=== PATIENT | male | born 1940 | race Caucasian/White ===

== ENCOUNTER 2025-01-08 14:56 | Inpatient (IN) | payer MEDICARE, MEDICAID ==
[~2025-01-08] VITALS: Ht 177.8 cm; Wt 76.9 kg
[2025-01-08 15:33] LABS: PLATELET COUNT (AUTO) 123 K/uL (150-450); RED BLOOD CELL COUNT(AUTO) 4.46 MIL/uL (4.5-6.0); RED CELL DISTRIBUTION WIDTH 15.1 % (11.5-15.0); WHITE BLOOD COUNT (AUTO) 5.5 K/uL (4.3-11.0)
[2025-01-08 15:37] LABS: CALCIUM, SERUM 8.5 mg/dL (8.5-10.1); CREATININE 1.4 mg/dL (0.6-1.3); SODIUM SERUM 138 mmol/L (136-145); UREA NITROGEN, BLOOD 25 mg/dL (7-18)
[2025-01-08 15:42] LABS: ASPARTATE AMINOTRANSFERASE 15 U/L (15-37); TOTAL PROTEIN, SERUM 6.6 g/dL (6.4-8.2)
[2025-01-08 15:54] LABS: ALCOHOL, BLOOD < 3 mg/dL (0-10)
[2025-01-08] MEDS ORDERED: POLY17PO4 PO (15:57)
[2025-01-08] MEDS ORDERED: SENN8.6T19 PO (15:57)
[2025-01-08] MEDS ORDERED: ACET-868 PO (15:57)
[2025-01-08] MEDS ORDERED: LORA-258 PO (15:57)
[2025-01-08] MEDS ORDERED: BUSP7.5T7 PO (15:57)
[2025-01-08] MEDS ORDERED: LORA2VIA33 IM (15:57)
[2025-01-08] MEDS ORDERED: AMLO5TAB4 PO (15:57)
[2025-01-08] MEDS ORDERED: CYAN-51 PO (15:57)
[2025-01-08] MEDS ORDERED: APIX5TAB PO (15:57)
[2025-01-08] MEDS ORDERED: DONE5TAB34 PO (15:57)
[2025-01-08] MEDS ORDERED: CYCL30DR EACHEYE (15:57)
[2025-01-08] MEDS ORDERED: MIRT7.5T10 PO (15:57)
[2025-01-08] MEDS ORDERED: ISOS30TA86 PO (15:57)
[2025-01-08] MEDS ORDERED: CHOL200026 PO (15:57)
[2025-01-08] MEDS ORDERED: DIVA-78 PO ×2 (15:57)
[2025-01-08] MEDS ORDERED: FINA5TAB4 PO (15:57)
[2025-01-08] MEDS ORDERED: ATOR40TA PO (15:57)
[2025-01-08] MEDS ORDERED: INSU100V28 SQ (15:57)
[2025-01-08] MEDS ORDERED: TAMS-12 PO (15:57)
[2025-01-08] MEDS ORDERED: LEVE500T20 PO (15:57)
[2025-01-08 16:05] LABS: APPEARANCE,URINE CLEAR (CLEAR); BLOOD, URINE Negative Ery/uL (NEGATIVE); LEUKOCYTE ESTERASE ,URINE Negative (NEGATIVE); NITRITE, URINE NEGATIVE (NEGATIVE); UGLUCOSE 250 MG/DL mg/dL (NEGATIVE)
[2025-01-08 16:06] LABS: ADD URINE CULTURE NO; SQUAMOUS EPITHELIAL CELL,UR None Seen /HPF (None Seen)
[2025-01-08 16:12] LABS: AMPHETAMINE, URINE NEGATIVE (NEGATIVE); BARBITURATE, URINE NEGATIVE (NEGATIVE); BENZODIAZEPINE, URINE NEGATIVE (NEGATIVE); CANNABINOID, URINE NEGATIVE (NEGATIVE); COCCAINE, URINE NEGATIVE (NEGATIVE); OPIATE, URINE NEGATIVE (NEGATIVE)
[2025-01-08] MEDS ORDERED: LORAZEPAM 0.5 MG TABLET PO PRN (17:30)
[2025-01-08] MEDS ORDERED: POLYETHYLENE GLYCOL 3350 17 GM POWD.PACK PO PRN (17:30)
[2025-01-08] MEDS ORDERED: MAGNESIUM HYDROXIDE 30 ML UDC PO PRN (17:30)
[2025-01-08] MEDS ORDERED: ACETAMINOPHEN 325 MG TABLET PO PRN ×2 (17:30)
[2025-01-08] MEDS ORDERED: IV NS 0.9% 1,000 ML IV SCH (17:30)
[2025-01-08] MEDS ORDERED: ONDANSETRON HCL/PF 4 MG/2 ML VIAL IVP PRN (17:30)
[2025-01-08] MEDS ORDERED: MAG HYDROX/AL HYDROX/SIMETH 30 ML UDC PO PRN (17:30)
[2025-01-08] MEDS ORDERED: Z GUARD REMEDY 4 OZ OINT TP PRN (17:30)
[2025-01-08 20:00] VITALS: BP 146/78; TEMP 97.5; O2SAT 99
[2025-01-08] MEDS: DIVALPROEX SODIUM 500 MG TABLET.DR PO SCH (21:53)
[2025-01-08] MEDS: DONEPEZIL 5 MG TABLET PO SCH (21:53)
[2025-01-08] MEDS: TAMSULOSIN 0.4 MG CAP.SR.24H PO SCH (21:53)
[2025-01-08] MEDS: MIRTAZAPINE 15 MG TABLET PO SCH (21:53)
[2025-01-08] MEDS: SENNOSIDES 8.6 MG TABLET PO SCH (21:53)
[2025-01-08] MEDS: AMLODIPINE BESYLATE 5 MG TABLET PO SCH (22:13)
[2025-01-08] MEDS: IV NS 0.9% 1,000 ML IV PRN (22:59)
[2025-01-09 07:17] LABS: PLATELET COUNT (AUTO) 114 K/uL (150-450); RED BLOOD CELL COUNT(AUTO) 4.28 MIL/uL (4.5-6.0); RED CELL DISTRIBUTION WIDTH 14.7 % (11.5-15.0); WHITE BLOOD COUNT (AUTO) 4.0 K/uL (4.3-11.0)
[2025-01-09 08:00] VITALS: BP 134/69; TEMP 98.2; O2SAT 99
[2025-01-09 08:02] LABS: CALCIUM, SERUM 8.3 mg/dL (8.5-10.1); CREATININE 1.2 mg/dL (0.6-1.3); PHOSPHORUS 2.7 mg/dL (2.5-4.9); SODIUM SERUM 143.0 mmol/L (136-145); UREA NITROGEN, BLOOD 19.0 mg/dL (7-18)
[2025-01-09 08:58] VITALS: BP 134/69; TEMP 98.2; O2SAT 99
[2025-01-09] MEDS: APIXABAN 5 MG TABLET PO SCH (09:00)
[2025-01-09] MEDS: DIVALPROEX SODIUM 500 MG TABLET.DR PO SCH (09:00)
[2025-01-09] MEDS: ISOSORBIDE MONONITRATE (30MG) 30 MG TAB.SR.24H PO SCH (10:11)
[2025-01-09] MEDS: LEVETIRACETAM (250 MG) 250 MG TABLET PO SCH (10:12)
[2025-01-09] MEDS: FINASTERIDE (5 MG) 5 MG TABLET PO SCH (10:12)
[2025-01-09] MEDS: LORAZEPAM INJ 2 MG/ML VIAL IM PRN (12:55)
[2025-01-09 16:00] VITALS: BP 149/91; TEMP 98.2; O2SAT 96
[2025-01-09 17:07] VITALS: BP 149/91; TEMP 98.2; O2SAT 96
[2025-01-09 20:00] VITALS: BP 120/79; TEMP 98.2; O2SAT 97
[2025-01-10 07:00] VITALS: BP 118/70; TEMP 97.2; O2SAT 100
[2025-01-10 07:02] LABS: PLATELET COUNT (AUTO) 117 K/uL (150-450); RED BLOOD CELL COUNT(AUTO) 4.40 MIL/uL (4.5-6.0); RED CELL DISTRIBUTION WIDTH 14.9 % (11.5-15.0); WHITE BLOOD COUNT (AUTO) 11.6 K/uL (4.3-11.0)
[2025-01-10 07:18] LABS: ASPARTATE AMINOTRANSFERASE 13.0 U/L (15-37); CALCIUM, SERUM 8.1 mg/dL (8.5-10.1); CREATINE KINASE, TOTAL 65.0 U/L (39-308); CREATININE 1.4 mg/dL (0.6-1.3); PHOSPHORUS 3.1 mg/dL (2.5-4.9); SODIUM SERUM 140.0 mmol/L (136-145); TOTAL PROTEIN, SERUM 5.7 g/dL (6.4-8.2); UREA NITROGEN, BLOOD 23.0 mg/dL (7-18)
[2025-01-10 16:00] VITALS: BP 121/72; TEMP 97.3; O2SAT 99
[2025-01-10 20:00] VITALS: BP 122/70; TEMP 97.7; O2SAT 99
[2025-01-11 06:26] LABS: PLATELET COUNT (AUTO) 106 K/uL (150-450); RED BLOOD CELL COUNT(AUTO) 4.12 MIL/uL (4.5-6.0); RED CELL DISTRIBUTION WIDTH 14.7 % (11.5-15.0); WHITE BLOOD COUNT (AUTO) 4.9 K/uL (4.3-11.0)
[2025-01-11 06:56] LABS: CALCIUM, SERUM 8.0 mg/dL (8.5-10.1); CREATININE 1.3 mg/dL (0.6-1.3); SODIUM SERUM 142.0 mmol/L (136-145); UREA NITROGEN, BLOOD 19.0 mg/dL (7-18)
[2025-01-11 08:00] VITALS: BP 149/78; TEMP 98.2; O2SAT 95
[2025-01-11 16:00] VITALS: BP 115/72; TEMP 97.5; O2SAT 99
[2025-01-11 17:52] VITALS: BP 115/72
[2025-01-12 01:08] LABS: PTH, INTACT 70 pg/mL (15-65)
== END 2025-01-11 18:10 | DRG 640 ==
LOC: ER 15:11 → TELE 18:32 → MED 01-09 03:12
PROVIDERS: ADMIT Internal Medicine; ATTEND Internal Medicine
PROC: 05HB33Z Insertion of Infusion Device into Right Basilic Vein, Percutaneous Approach (ICD-10-PCS; principal; 2025-01-09)
DX: E86.0 Dehydration (principal); G93.41 Metabolic encephalopathy; N17.0 Acute kidney failure with tubular necrosis; E44.0 Moderate protein-calorie malnutrition; I13.0 Hypertensive heart and chronic kidney disease with heart failure and stage 1 through stage 4 chronic kidney disease, or unspecified chronic kidney disease; F02.83 Dementia in other diseases classified elsewhere, unspecified severity, with mood disturbance; F02.82 Dementia in other diseases classified elsewhere, unspecified severity, with psychotic disturbance; E11.9 Type 2 diabetes mellitus without complications; G40.909 Epilepsy, unspecified, not intractable, without status epilepticus; Z66 Do not resuscitate; E88.09 Other disorders of plasma-protein metabolism, not elsewhere classified; Z20.822 Contact with and (suspected) exposure to COVID-19; N18.9 Chronic kidney disease, unspecified; I25.10 Atherosclerotic heart disease of native coronary artery without angina pectoris; I48.91 Unspecified atrial fibrillation; I50.9 Heart failure, unspecified; E78.5 Hyperlipidemia, unspecified; R62.7 Adult failure to thrive; Z86.73 Personal history of transient ischemic attack (TIA), and cerebral infarction without residual deficits; G30.9 Alzheimer's disease, unspecified; N40.0 Benign prostatic hyperplasia without lower urinary tract symptoms; F32.9 Major depressive disorder, single episode, unspecified; E11.22 Type 2 diabetes mellitus with diabetic chronic kidney disease; D64.9 Anemia, unspecified; Z79.01 Long term (current) use of anticoagulants; Z88.5 Allergy status to narcotic agent; M19.90 Unspecified osteoarthritis, unspecified site; F41.9 Anxiety disorder, unspecified; Z88.8 Allergy status to other drugs, medicaments and biological substances; Z91.041 Radiographic dye allergy status; Z79.4 Long term (current) use of insulin; Z79.899 Other long term (current) drug therapy; F29 Unspecified psychosis not due to a substance or known physiological condition
CPT/HCPCS: 36415; 70450-TC; 71045-TC; 76770-TC; 80048-TC; 80053-TC; 80076-TC; 81001; 82550-TC; 83735-TC; 83970; 84100-TC; 84155; 84165; 84443-TC; 85025-TC; 87081-TC; 97110-TC; 97116-TC; 97530-TC; A4223; A6254; A6403; G0378; G0480; J2060; J7030

== ENCOUNTER 2025-02-03 21:50 | Inpatient (IN) | payer MEDICARE, OTHER ==
[~2025-02-03] VITALS: Ht 182.9 cm; Wt 72.6 kg
[~2025-02-03 21:50] MED LIST: ACET-868 PO; AMLO5TAB4 PO; APIX5TAB PO; ATOR40TA PO; BUSP7.5T7 PO; CHOL200026 PO; CYAN-51 PO; CYCL30DR EACHEYE; DIVA-78 PO; DONE5TAB34 PO; FINA5TAB4 PO; INSU100V28 SQ; ISOS30TA86 PO; LEVE500T20 PO; LORA-258 PO; LORA2VIA33 IM; MIRT7.5T10 PO; POLY17PO4 PO; SENN8.6T19 PO; TAMS-12 PO
[2025-02-03 22:34] LABS: PLATELET COUNT (AUTO) 165 K/uL (150-450); RED BLOOD CELL COUNT(AUTO) 3.94 MIL/uL (4.5-6.0); RED CELL DISTRIBUTION WIDTH 14.7 % (11.5-15.0); WHITE BLOOD COUNT (AUTO) 6.4 K/uL (4.3-11.0)
[2025-02-03 22:47] LABS: CALCIUM, SERUM 7.9 mg/dL (8.5-10.1); CREATININE 1.8 mg/dL (0.6-1.3); SODIUM SERUM 136 mmol/L (136-145); UREA NITROGEN, BLOOD 27 mg/dL (7-18)
[2025-02-03 22:48] LABS: ASPARTATE AMINOTRANSFERASE 10 U/L (15-37); TOTAL PROTEIN, SERUM 6.0 g/dL (6.4-8.2)
[2025-02-03 23:40] LABS: APPEARANCE,URINE CLEAR (CLEAR); BLOOD, URINE NEGATIVE Ery/uL (NEGATIVE); LEUKOCYTE ESTERASE ,URINE NEGATIVE (NEGATIVE); NITRITE, URINE NEGATIVE (NEGATIVE); UGLUCOSE 3+ mg/dL (NEGATIVE)
[2025-02-03 23:51] LABS: AMPHETAMINE, URINE NEGATIVE (NEGATIVE); BARBITURATE, URINE NEGATIVE (NEGATIVE); BENZODIAZEPINE, URINE NEGATIVE (NEGATIVE); CANNABINOID, URINE NEGATIVE (NEGATIVE); COCCAINE, URINE NEGATIVE (NEGATIVE); OPIATE, URINE NEGATIVE (NEGATIVE)
[2025-02-03 23:53] LABS: ADD URINE CULTURE NO; SQUAMOUS EPITHELIAL CELL,UR 0-2 /HPF (None Seen)
[2025-02-04] MEDS ORDERED: LORA-259 PO (01:03)
[2025-02-04] MEDS ORDERED: ATOR40TA PO (01:03)
[2025-02-04] MEDS ORDERED: FINA5TAB3 PO (01:03)
[2025-02-04] MEDS ORDERED: INSU100V3 IJ (01:03)
[2025-02-04] MEDS ORDERED: ACET-3117 PO (01:03)
[2025-02-04] MEDS ORDERED: CYAN500T64 PO (01:03)
[2025-02-04] MEDS ORDERED: AMLO-212 PO (01:03)
[2025-02-04] MEDS ORDERED: MIRT7.5T10 PO (01:03)
[2025-02-04] MEDS ORDERED: BUSP7.5T7 PO (01:03)
[2025-02-04] MEDS ORDERED: CHOL400T11 PO (01:03)
[2025-02-04 06:12] VITALS: BP 167/84; TEMP 98.4
[2025-02-04] MEDS ORDERED: TEMAZEPAM 7.5 MG CAPSULE PO PRN (06:30)
[2025-02-04] MEDS ORDERED: MAG HYDROX/AL HYDROX/SIMETH 30 ML UDC PO PRN (06:30)
[2025-02-04] MEDS ORDERED: MAGNESIUM HYDROXIDE 30 ML UDC PO PRN (06:30)
[2025-02-04 08:00] VITALS: BP 164/85; TEMP 98.6; O2SAT 96
[2025-02-04] MEDS: BLOOD SUGAR DIAGNOSTIC 1 EACH STRIP IN ONE (08:09)
[2025-02-04] MEDS ORDERED: POLYETHYLENE GLYCOL 3350 17 GM POWD.PACK PO PRN (10:00)
[2025-02-04] MEDS: LORAZEPAM 1 MG TABLET PO PRN (10:59)
[2025-02-04] MEDS ORDERED: INSULIN REGULAR, HUMAN 100 UNIT/ML 3 ML VIAL IJ SCH (12:00)
[2025-02-04] MEDS ORDERED: DEXTROSE 50%-WATER 50 ML DISP.SYRIN IV PRN (12:30)
[2025-02-04] MEDS ORDERED: INSULIN REGULAR, HUMAN 100 UNIT/ML 3 ML VIAL SQ SCH (13:00)
[2025-02-04] MEDS: LEVETIRACETAM (250 MG) 250 MG TABLET PO SCH (13:10)
[2025-02-04 16:00] VITALS: BP 151/81; TEMP 98.6; O2SAT 99
[2025-02-04] MEDS: APIXABAN 5 MG TABLET PO SCH (16:20)
[2025-02-04] MEDS: INSULIN REGULAR, HUMAN 100 UNIT/ML 3 ML VIAL SQ PRN (17:15)
[2025-02-04] MEDS: BLOOD SUGAR DIAGNOSTIC 1 EACH STRIP IN SCH (17:17)
[2025-02-04] MEDS ORDERED: AMLODIPINE BESYLATE 5 MG TABLET PO SCH (18:00)
[2025-02-04] MEDS: AMLODIPINE BESYLATE 5 MG TABLET PO SCH (18:09)
[2025-02-04] MEDS: ATORVASTATIN 40 MG TABLET PO SCH (18:09)
[2025-02-04] MEDS: SENNOSIDES 8.6 MG TABLET PO SCH (22:14)
[2025-02-04] MEDS: TAMSULOSIN 0.4 MG CAP.SR.24H PO SCH (22:15)
[2025-02-04] MEDS: TRAZODONE 50 MG TABLET PO SCH (22:15)
[2025-02-04] MEDS: TEMAZEPAM 7.5 MG CAPSULE PO PRN (22:54)
[2025-02-05 07:45] LABS: PLATELET COUNT (AUTO) 154 K/uL (150-450); RED BLOOD CELL COUNT(AUTO) 4.32 MIL/uL (4.5-6.0); RED CELL DISTRIBUTION WIDTH 14.2 % (11.5-15.0); WHITE BLOOD COUNT (AUTO) 4.3 K/uL (4.3-11.0)
[2025-02-05 08:00] VITALS: BP 124/88; TEMP 97.6; O2SAT 97
[2025-02-05 08:22] LABS: PHOSPHORUS 2.6 mg/dL (2.5-4.9)
[2025-02-05 08:23] LABS: ASPARTATE AMINOTRANSFERASE 13.0 U/L (15-37); CALCIUM, SERUM 8.5 mg/dL (8.5-10.1); CREATININE 1.5 mg/dL (0.6-1.3); SODIUM SERUM 139.0 mmol/L (136-145); TOTAL PROTEIN, SERUM 6.5 g/dL (6.4-8.2); UREA NITROGEN, BLOOD 27.0 mg/dL (7-18)
[2025-02-05] MEDS: CYANOCOBALAMIN 500 MCG TABLET PO SCH (08:53)
[2025-02-05] MEDS: FINASTERIDE (5 MG) 5 MG TABLET PO SCH (08:53)
[2025-02-05] MEDS: CHOLECALCIFEROL (VITAMIN D 3) 400 UNIT TABLET PO SCH (08:54)
[2025-02-05] MEDS: DIVALPROEX SODIUM 500 MG TABLET.DR PO SCH (08:54)
[2025-02-05] MEDS: ISOSORBIDE MONONITRATE (30MG) 30 MG TAB.SR.24H PO SCH (08:55)
[2025-02-05] MEDS: QUETIAPINE FUMARATE 25 MG TABLET PO SCH (08:56)
[2025-02-05 09:23] LABS: CREATINE KINASE, TOTAL 41.0 U/L (39-308); LDL 65.0 mg/dL (0-99)
[2025-02-05 16:02] VITALS: BP 104/70; TEMP 97.7; O2SAT 100
[2025-02-05 20:36] VITALS: BP 140/81; TEMP 97.9; O2SAT 98
[2025-02-06 05:08] LABS: PTH, INTACT 73 pg/mL (15-65)
[2025-02-06 08:00] VITALS: BP 110/68; TEMP 97.5; O2SAT 95
[2025-02-06 08:56] VITALS: BP 128/70
[2025-02-06] MEDS: LORAZEPAM 0.5 MG TABLET PO PRN (12:35)
[2025-02-06 16:20] LABS: PLATELET COUNT (AUTO) 162 K/uL (150-450); RED BLOOD CELL COUNT(AUTO) 4.31 MIL/uL (4.5-6.0); RED CELL DISTRIBUTION WIDTH 14.6 % (11.5-15.0); WHITE BLOOD COUNT (AUTO) 9.7 K/uL (4.3-11.0)
[2025-02-06 16:31] LABS: CALCIUM, SERUM 8.6 mg/dL (8.5-10.1); CREATININE 1.5 mg/dL (0.6-1.3); SODIUM SERUM 139.0 mmol/L (136-145); UREA NITROGEN, BLOOD 28.0 mg/dL (7-18)
[2025-02-06 16:33] LABS: SERUM AMMONIA 5.0 umol/L (11-32)
[2025-02-06] MEDS: GUAIFENESIN 300 MG/15 ML UDC PO PRN (18:03)
[2025-02-06 20:23] VITALS: BP 146/73; TEMP 97.9; O2SAT 98
[2025-02-07 08:00] VITALS: BP 128/81; TEMP 97.9; O2SAT 98
[2025-02-07 08:12] VITALS: BP 128/81; TEMP 97.9; O2SAT 98
[2025-02-07 15:18] VITALS: BP 123/74; TEMP 97.5; O2SAT 100
[2025-02-07 17:56] VITALS: BP 143/64
[2025-02-07 20:36] VITALS: BP 150/77; TEMP 97.7; O2SAT 98
[2025-02-08] VITALS (7 sets, daily range): BP systolic 121–124; BP diastolic 61–65; TEMP 97.6–98.3; O2SAT 92–99
[2025-02-08] MEDS: ALBUTEROL HALF STRENGTH 1.25 MG/3 ML VIAL.NEB NEB ONE (00:27)
[2025-02-08] MEDS: ACETAMINOPHEN 325 MG TABLET PO PRN (11:54)
[2025-02-08] MEDS: ALBUTEROL FS 2.5 MG/0.5 ML VIAL.NEB NEB PRN (17:04)
[2025-02-09 08:00] VITALS: BP 134/80; TEMP 97.7; O2SAT 94
[2025-02-09 11:24] VITALS: O2SAT 92
[2025-02-09 16:00] VITALS: BP 118/79; TEMP 97.8; O2SAT 96
[2025-02-09] MEDS: APIXABAN 5 MG TABLET PO SCH (16:24)
[2025-02-09 19:44] VITALS: BP 137/71; TEMP 97.8; O2SAT 98
[2025-02-09] MEDS: TRAZODONE 50 MG TABLET PO SCH (21:04)
[2025-02-09 22:42] VITALS: O2SAT 93
[2025-02-09] MEDS: IPRATROPIUM NEB FS 0.5 MG/2.5 ML AMPUL.NEB NEB PRN (22:42)
[2025-02-09 22:53] VITALS: O2SAT 97
[2025-02-10] VITALS (9 sets, daily range): BP systolic 118–131; BP diastolic 62–80; TEMP 97.8–98.2; O2SAT 93–98
[2025-02-10 07:05] LABS: PLATELET COUNT (AUTO) 123 K/uL (150-450); RED BLOOD CELL COUNT(AUTO) 3.75 MIL/uL (4.5-6.0); RED CELL DISTRIBUTION WIDTH 14.7 % (11.5-15.0); WHITE BLOOD COUNT (AUTO) 7.6 K/uL (4.3-11.0)
[2025-02-10 07:27] LABS: CALCIUM, SERUM 8.3 mg/dL (8.5-10.1); CREATININE 1.3 mg/dL (0.6-1.3); PHOSPHORUS 3.7 mg/dL (2.5-4.9); SODIUM SERUM 139.0 mmol/L (136-145); UREA NITROGEN, BLOOD 26.0 mg/dL (7-18)
[2025-02-10] MEDS: ALBUTEROL FS 2.5 MG/0.5 ML VIAL.NEB NEB SCH (13:47)
[2025-02-10] MEDS: IPRATROPIUM NEB FS 0.5 MG/2.5 ML AMPUL.NEB NEB SCH (13:47)
[2025-02-11] MEDS: ACETAMINOPHEN 325 MG TABLET PO PRN (06:32)
[2025-02-11 08:00] VITALS: BP 118/64; TEMP 98.6; O2SAT 94
[2025-02-11 08:17] VITALS: O2SAT 95
[2025-02-11 08:28] VITALS: O2SAT 98
[2025-02-11 16:04] VITALS: BP 123/64; TEMP 97.8; O2SAT 97
[2025-02-11 20:22] VITALS: O2SAT 95
[2025-02-11 20:35] VITALS: O2SAT 98
[2025-02-12] VITALS (11 sets, daily range): BP systolic 105–149; BP diastolic 64–78; TEMP 97.6–97.9; O2SAT 94–100
[2025-02-12] MEDS: DIVALPROEX SODIUM 125 MG CAP.SPRINK PO SCH (09:10)
[2025-02-13] VITALS (9 sets, daily range): BP systolic 112–121; BP diastolic 55–71; TEMP 97.8–98.7; O2SAT 94–99
[2025-02-14] VITALS (11 sets, daily range): BP systolic 118–140; BP diastolic 65–73; TEMP 97.5–97.9; O2SAT 94–98
[2025-02-14] MEDS: Z GUARD REMEDY 4 OZ OINT TP PRN (23:36)
[2025-02-15] VITALS (14 sets, daily range): BP systolic 107–119; BP diastolic 52–69; TEMP 98.2–98.6; O2SAT 94–98
[2025-02-16] VITALS (11 sets, daily range): BP systolic 106–126; BP diastolic 64–76; TEMP 97.7–98.8; O2SAT 94–100
[2025-02-16] MEDS ORDERED: DEXTROSE 50%-WATER 50 ML DISP.SYRIN IV PRN (12:00)
[2025-02-16] MEDS: BLOOD SUGAR DIAGNOSTIC 1 EACH STRIP IN SCH (12:26)
[2025-02-16] MEDS: INSULIN REGULAR, HUMAN 100 UNIT/ML 3 ML VIAL SQ PRN (16:58)
[2025-02-16] MEDS: *INSULIN REGULAR(HUMULIN R)HUM 100 UNIT/ML VIAL SQ PRN (22:06)
[2025-02-17 07:51] VITALS: O2SAT 95
[2025-02-17 08:00] VITALS: BP 100/71; TEMP 97.7; O2SAT 96
[2025-02-17 08:02] VITALS: O2SAT 98
[2025-02-17 09:00] VITALS: BP 100/71
[2025-02-17] MEDS: CHOLECALCIFEROL 1,000 UNIT TABLET (VIT D3) PO SCH (10:01)
[2025-02-17 10:48] VITALS: O2SAT 90
[2025-02-17 10:59] VITALS: O2SAT 96
== END 2025-02-17 13:05 | DRG 885 ==
LOC: ER 21:53 → GPS 02-04 04:09
PROVIDERS: ADMIT Nurse Practitioner Psychiatric/Mental Health; ATTEND Nurse Practitioner Acute Care
DX: F32.3 Major depressive disorder, single episode, severe with psychotic features (principal); N17.0 Acute kidney failure with tubular necrosis; I11.0 Hypertensive heart disease with heart failure; F02.811 Dementia in other diseases classified elsewhere, unspecified severity, with agitation; F02.82 Dementia in other diseases classified elsewhere, unspecified severity, with psychotic disturbance; F02.83 Dementia in other diseases classified elsewhere, unspecified severity, with mood disturbance; E44.1 Mild protein-calorie malnutrition; F29 Unspecified psychosis not due to a substance or known physiological condition; G30.9 Alzheimer's disease, unspecified; G40.909 Epilepsy, unspecified, not intractable, without status epilepticus; I50.9 Heart failure, unspecified; Z73.6 Limitation of activities due to disability; I48.91 Unspecified atrial fibrillation; E88.09 Other disorders of plasma-protein metabolism, not elsewhere classified; E78.5 Hyperlipidemia, unspecified; Z86.73 Personal history of transient ischemic attack (TIA), and cerebral infarction without residual deficits; N40.0 Benign prostatic hyperplasia without lower urinary tract symptoms; M89.8X9 Other specified disorders of bone, unspecified site; E11.9 Type 2 diabetes mellitus without complications; D64.9 Anemia, unspecified; M19.90 Unspecified osteoarthritis, unspecified site; Z88.5 Allergy status to narcotic agent; Z88.8 Allergy status to other drugs, medicaments and biological substances; Z91.041 Radiographic dye allergy status; Z79.4 Long term (current) use of insulin; Z79.01 Long term (current) use of anticoagulants; Z79.899 Other long term (current) drug therapy; E86.9 Volume depletion, unspecified
CPT/HCPCS: 36415; 71045-TC; 76770-TC; 80048-TC; 80053-TC; 80061-TC; 80076-TC; 80164-TC; 81001; 82140-TC; 82550-TC; 82962-TC; 83735-TC; 83970; 84100-TC; 84155; 84165; 85025-TC; 92526; 92611; 94760-TC; 94799-TC; 97110-TC; 97116-TC; 97530-TC; 98960; J1815